=== PATIENT | female | born 1980 | race Caucasian/White ===

== ENCOUNTER 2024-04-30 22:59 | Emergency (ER) | payer OTHER ==
[2024-04-30] MEDS ORDERED: NA CHLORIDE 0.9% 1,000 ML ONE (23:57)
[2024-05-01 00:02] LABS: Absolute Basophils 0.1 K/uL (0-0.5); Absolute Eosinophils 0.2 K/uL (0-0.5); Absolute Lymphocytes (CBC) 1.6 K/uL (0.7-4.9); Absolute Monocytes 0.7 K/uL (0.1-1.3); Absolute Neutrophil 9.5 K/uL (1.8-8.0); Basophils % 0.6 % (0-1.3); Eosinophils % 1.6 % (0-4.4); Hematocrit 42.2 % (36.0-45.0); Hemoglobin 14.2 g/dL (12.0-15.0); Lymphocytes % 13.5 % (15.3-44.8); MCH 32.4 pg (27.0-35.0); MCHC 33.6 g/dL (32.0-36.0); MCV 96.5 fL (80-100); Monocytes % 5.8 % (3.3-12.3); Neutrophils % 78.5 % (41.7-73.7); Platelets 276 thou/uL (152-406); RBC Red Blood Cell Count 4.38 M/uL (3.86-4.86); Red Cell Distribution Width 14.6 % (12.1-15.2)
[2024-05-01 00:10] LABS: Anion Gap 7.2 mEq/L (5.0-15.0); Potassium 4.2 mEq/L (3.5-5.1)
--- NOTE | 2024-05-01 04:04 | RAD REPORT ---
EXAM: CT abdomen and pelvis with IV contrast CLINICAL DATA: 44 years Female post hyst bleeding; Abd pain TECHNICAL DATA: Axial CT imaging of the abdomen and pelvis was performed following the administration of intravenous contrast.. Oral contrast was not administered. Sagittal and coronal reconstructed images were then performed. The CT study is performed according to ALARA (as low as reasonably achievable) or A ISAI/IMAGE GENTLY, with automatic adjustment of mA and/or kV according to patient size. Performed on: 05/01/2024 at 1:55 AM. Comparison: No prior studies were available for comparison. FINDINGS: Lung bases: Lung bases are clear. The heart is normal in size. Liver: The liver is normal in size and configuration. No focal hepatic abnormalities are identified. Liver attenuation is within normal limits. The hepatic and portal veins are patent. Spleen: The spleen is normal in size, configuration and attenuation. Gallbladder and bile duct: The gallbladder is relatively well distended and unremarkable. There is no biliary ductal dilatation. Pancreas: The pancreas is grossly normal in size and configuration. Adrenal Glands: The adrenal glands are normal in size and configuration. Kidneys: The kidneys are normal in size and configuration. There is no evidence of hydronephrosis. Th ere is no evidence of nephrolithiasis. There is a 9 mm benign-appearing right renal cortical cyst. No follow-up imaging is recommended. Stomach: The stomach is grossly normal. There is no definite hiatal hernia. Bowel: The bowel gas pattern is non specific and non obstructive. There is bowel wall thickening invo lving a few small bowel loops in the left hemiabdomen. This finding is nonspecific but may be due to underlying inflammatory bowel disease. Appendix: There is no CT evidence of acute appendicitis. Free air: There is no evidence of free air. Free fluid: There is a small amount of nonspecific low-density fluid in the pelvis. This may be physi ologic in nature. Vasculature: The aorta is normal in caliber and contour. The inferior vena cava is grossly unremarkab le. Lymphadenopathy: No pathologic lymphadenopathy is identified. Bladder: The bladder is well distended and smooth in contour. Reproductive: The uterus is surgically absent. There is a small amount of nonspecific low density pel destini free fluid. Bones: No acute osseous abnormalities are identified. There are remote postsurgical changes of the th oracolumbar spine consistent with extensive posterior decompression and fusion extending from at least T9-L4. The indwelling hardware appears intact without evidence to suggest hardware failure. Add itionally, the indwelling hardware produces streak artifact and slight degradation of image quality. There is increased sclerosis and irregularity involving the posterior right iliac bone which may represent a donor graft site. Soft tissues: No acute soft tissue abnormalities are identified. IMPRESSION: 1. There is bowel wall thickening involving a few small bowel loops in the left hemiabdomen. This f inding is nonspecific but may be due to underlying inflammatory bowel disease. 2. Small amount of nonspecific low density pelvic free fluid. This may be physiologic in nature. 3. Remote posterior decompression and fusion of the thoracolumbar spine extending from at least T9- L4. The indwelling hardware appears intact without evidence to suggest hardware failure. Additionally, the indwelling hardware produces streak artifact and slight degradation of image qualit y. 4. Status post hysterectomy. Electronically signed by: Marylou Ferreira DO 05/01/2024 04:00 AM [facility] Due to temporary technical issues with the PACS/[employer] reporting system, reports are being jamey d by the in-house radiologist without review as a courtesy to ensure prompt reporting the interpreting radiologist is fully responsible for the content of the report. Transcribed Date/Time: 05/01/2024 4:04 AM
[2024-05-01] MEDS ORDERED: MORPHINE 4 MG/ML SYR ONE (04:26)
[2024-05-01] MEDS ORDERED: ONDANSETRON 4 MG/2 ML VIAL ONE (04:26)
--- NOTE | 2024-05-01 04:42 | EDPHYS ---
Physician Documentation [facility] Name: Sandy Londono Age: 44 yrs Sex: Female : 1980 Arrival Date: 04/30/2024 Time: 22:59 Bed 3 Private MD: ED Physician Dewayne Ambriz HPI: 04/30 23:21 This 44 yrs old Female presents to ER via Unassigned with complaints of Vaginal kb Bleeding - Post Sx. 23:21 Pt is a 44 year old female who presents for vaginal bleeding that began during kb intercourse this evening. states she had a hysterectomy one month ago and was cleared for intercourse today. Reports abd cramping. Hysterectomy performed by Dr Olmedo at [facility]. . 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 - Infectious Disease History:: Denies. - Social history:: Smoking status: Patient denies any tobacco usage or history of. Patient uses alcohol, occasionally. street drugs, CBD, THC. ROS: 23:22 Constitutional: As per HPI kb Exam: 05/01 00:37 Constitutional: This is a well developed, well nourished patient who is awake, alert, kb and in no acute distress. Head/Face: Normocephalic, atraumatic. ENT: Moist Mucous membranes Cardiovascular: Regular rate Respiratory: Respirations even and unlabored. No increased work of breathing. Talking in full sentences Skin: Warm, dry with normal turgor. Normal color. MS/ Extremity: Pulses equal, no cyanosis. Neurovascular intact. Full, normal range of motion. Neuro: Awake and alert, GCS 15, oriented to person, place, time, and situation. Abdomen/GI: Inspection: abdomen appears normal, Bowel sounds: normal, Palpation: soft, in all quadrants, mild abdominal tenderness, in the suprapubic area, : Pelvic Exam: External exam: is normal, Speculum exam: mild bleeding, the nurse was present for the exam, Vital Signs: 04/30 23:27 BP 99 / 54; Pulse 73; Resp 17 S; Temp 98.1(O); Pulse Ox 99% on R/A; Weight 63.5 kg (R); lg3 Height 5 ft. 5 in. (R); Pain 8; 05/01 00:30 BP 101 / 56; Pulse 71; Resp 18; Pulse Ox 99% ; cp4 01:49 BP 104 / 54; Pulse 80; Resp 18; Pulse Ox 99% ; cp4 02:56 BP 106 / 62; Pulse 73; Resp 18; Pulse Ox 99% ; cp4 04:53 BP 104 / 64; Pulse 84; Resp 18; Temp 98.1; Pulse Ox 100% ; Pain 3/10; bm8 04/30 23:27 Body Mass Index 23.30 (63.50 kg, 165.1 cm) lg3 04/30 23:27 Pain Scale: Adult lg3 04:53 Pain Scale: Adult bm8 Janes Coma Score: 04:53 Eye Response: spontaneous(4). Motor Response: obeys commands(6). Verbal Response: bm8 oriented(5). Total: 15. MDM: 04/30 23:17 Medical Screening Exam initiated kb 05/01 00:53 Transition of care: After a detail discussion of the patient's case, care is kb transferred to Dewayne Ambriz MD. 04:33 ED course: IMPRESSION: 1. There is bowel wall thickening involving a few small bowel sp4 loops in the left hemiabdomen. This finding is nonspecific but may be due to underlying inflammatory bowel disease. 2. Small amount of nonspecific low density pelvic free fluid. This may be physiologic in nature. 3. Remote posterior decompression and fusion of the thoracolumbar spine extending from at least T9-L4. The indwelling hardware appears intact without evidence to suggest hardware failure. Additionally, the indwelling hardware produces streak artifact and slight degradation of image quality. 4. Status post hysterectomy. Electronically signed by: Marylou Ferreira DO 05/01/2024 04:00 AM. 04:38 Differential diagnosis: cervicitis, dysmenorrhea, endometriosis, ovarian cyst. Data sp4 reviewed: vital signs, nurses notes, lab test result(s), radiologic studies, CT scan. Consideration of Admission/Observation Escalation of care including admission/observation considered. ED course: Patient will be advised pelvic rest for at least 1 week. Follow-up with Dr. Locke with [facility]. 04/30 23:25 Order name: CBC with Diff; Complete Time: 00:10 kb 04/30 23:25 Order name: BMP; Complete Time: 00:10 kb 04/30 23:35 Order name: CT Abd/Pelvis - IV Contrast Only; Complete Time: 04:33 kb 04/30 23:25 Order name: IV Start; Complete Time: 23:55 kb 04/30 23:25 Order name: Pelvic Exam Setup; Complete Time: 00:16 kb Administered Medications: 00:16 Drug: NS 0.9% IV 1000 ml IV at 1000 ml once; to be given as a bolus over 60 minutes cp4 Route: IV; Rate: 1000 ml; Site: right antecubital; 04:54 Follow up: Response: No adverse reaction; IV Status: Completed infusion; IV Intake: bm8 1000ml 04:29 Drug: Ondansetron IVP 4 mg IVP once; over 2 minutes Route: IVP; Site: right antecubital;cp4 04:54 Follow up: Response: No adverse reaction bm8 04:30 Drug: morphine IVP or IV 4 mg IVP once over 4 mins Route: IVP; Infused Over: 4 mins; cp4 Site: right antecubital; 04:54 Follow up: Response: No adverse reaction bm8 Disposition: 04:38 Co-signature as Attending Physician, Dewayne Ambriz MD I agree with the assessment sp4 and plan of care. I reviewed the patient's care provided by Advanced Practice Provider \T\ agree w/ the diagnosis \T\ care plan. I personally saw the pt \T\ performed a substantive portion of the visit, incldng all aspects of the (History/Exam/Medical Decision Making). Disposition Summary: 05/01/24 04:41 Discharge Ordered Notes: Pelvic rest at least one week Location: Home sp4 Problem: new sp4 Symptoms: have improved sp4 Condition: Stable sp4 Diagnosis - Acute vaginal pain sp4 - Acute pelvic pain after [place] sp4 Followup: sp4 - With: Kate Olmedo MD - When: 1 - 2 days - Reason: Recheck today's complaints Discharge Instructions: - Discharge Summary Sheet sp4 - Pelvic Pain, Female, [id number] sp4 Forms: - Patient Portal Instructions sp4 Prescriptions: - acetaminophen-codeine 300-60 mg Oral tablet - take 1 tablet ORAL route every 6 hours PRN pain; 20 tablet; Refills: 0, Product sp4 Selection Permitted Signatures: Dispatcher [employer] Debi Isaacs, Ada Matt RN RN lg3 Dewayne Ambriz MD MD sp4 Breanne Mayes 4 Héctor Metzger RN bm8
--- NOTE | 2024-05-01 04:42 | ER ---
Nurse's Notes [facility] Name: Sandy Londono Age: 44 yrs Sex: Female : 1980 Arrival Date: 04/30/2024 Time: 22:59 Bed 3 Private MD: Diagnosis: Acute vaginal pain;Acute pelvic pain after [place] Presentation: 04/30 23:27 Chief complaint: Patient states: pelvic cramping with vaginal bleeding X1 hr after lg3 intercourse. total hysterectomy performed 03/31. Coronavirus screen: Client denies travel out of the [place] in the last 14 days. At this time, the client does not indicate any symptoms associated with coronavirus-19. Ebola Screen: No symptoms or risks identified at this time. Initial Sepsis Screen: Does the patient meet any 2 criteria? No. Patient's initial sepsis screen is negative. Does the patient have a suspected source of infection? No. Patient's initial sepsis screen is negative. Risk Assessment: Do you want to hurt yourself or someone else? Patient reports no desire to harm self or others. Onset of symptoms was April 30, 2024. 23:27 Method Of Arrival: Wheelchair lg3 23:27 Acuity: EMMA 3 lg3 Triage Assessment: 23:28 General: Appears in no apparent distress. uncomfortable, Behavior is calm, cooperative. lg3 Pain: Complains of pain in pelvis Pain does not radiate. Pain currently is 8 out of 10 on a pain scale. Quality of pain is described as crampy. EENT: No deficits noted. No signs and/or symptoms were reported regarding the EENT system. Neuro: No deficits noted. Ríos Agitation-Sedation Scale (RASS): 0 - Alert and Calm Level of Consciousness is awake, alert, obeys commands, Oriented to person, place, time, situation. Cardiovascular: No deficits noted. Denies chest pain, shortness of breath, Capillary refill < 3 seconds Clubbing of nail beds is absent JVD is absent Patient's skin is warm and dry. Respiratory: No deficits noted. Airway is patent Respiratory effort is even, unlabored, Respiratory pattern is regular, symmetrical. GI: Abdomen is round non-distended, Reports lower abdominal pain, nausea. : Reports vaginal bleeding that is bright red, light flow, spotty. Derm: No deficits noted. No signs and/or symptoms reported regarding the dermatologic system. Skin is intact, is healthy with good turgor, Skin is dry, Skin is normal, Skin temperature is warm. Musculoskeletal: No deficits noted. No signs and/or symptoms reported regarding the musculoskeletal system. Circulation, motion, and sensation intact. Range of motion: intact in all extremities. 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 - Infectious Disease History:: Denies. - Social history:: Smoking status: Patient denies any tobacco usage or history of. Patient uses alcohol, occasionally. street drugs, CBD, THC. Screenin/14 00:20 [facility] ED Fall Risk Assessment (Adult) History of falling in the last 3 months, cp4 including since admission No falls in past 3 months (0 pts) Confusion or Disorientation No (0 pts) Intoxicated or Sedated No (0 pts) Impaired Gait No (0 pts) Mobility Assist Device Used No (0 pt) Altered Elimination No (0 pt) Score/Fall Risk Level 0 - 2 = Low Risk Oriented to surroundings, Maintained a safe environment, Assessed \T\ reinforced patient's understanding of fall precautions, Hourly rounding (assess needs \T\ fall precautionary measures) done. Abuse screen: Denies threats or abuse. Nutritional screening: No deficits noted. Tuberculosis screening: No symptoms or risk factors identified. Assessment: 00:20 General: Appears in no apparent distress. uncomfortable, Behavior is calm, cooperative, cp4 appropriate for age. Pain: Denies pain. Neuro: Level of Consciousness is awake, alert, obeys commands, Oriented to person, place, time, situation. Cardiovascular: Patient's skin is warm and dry. Respiratory: Airway is patent Respiratory effort is even, unlabored. GI: No signs and/or symptoms were reported involving the gastrointestinal system. : Reports vaginal bleeding that is bright red. EENT: No signs and/or symptoms were reported regarding the EENT system. Derm: No signs and/or symptoms reported regarding the dermatologic system. Musculoskeletal: No signs and/or symptoms reported regarding the musculoskeletal system. 01:30 Reassessment: Patient appears in no apparent distress at this time. Patient and/or cp4 family updated on plan of care and expected duration. Pain level reassessed. Patient is alert, oriented x 3, equal unlabored respirations, skin warm/dry/pink. 02:30 Reassessment: Patient appears in no apparent distress at this time. Patient and/or cp4 family updated on plan of care and expected duration. Pain level reassessed. Patient is alert, oriented x 3, equal unlabored respirations, skin warm/dry/pink. 03:10 Reassessment: Patient appears in no apparent distress at this time. Patient and/or cp4 family updated on plan of care and expected duration. Pain level reassessed. Patient is alert, oriented x 3, equal unlabored respirations, skin warm/dry/pink. 04:53 Reassessment: Patient appears in no apparent distress at this time. Patient and/or bm8 family updated on plan of care and expected duration. Pain level reassessed. Patient is alert, oriented x 3, equal unlabored respirations, skin warm/dry/pink. Patient states feeling better. Patient states symptoms have improved. Vital Signs: 04/30 23:27 BP 99 / 54; Pulse 73; Resp 17 S; Temp 98.1(O); Pulse Ox 99% on R/A; Weight 63.5 kg (R); lg3 Height 5 ft. 5 in. (R); Pain 01/25; 05/01 00:30 BP 101 / 56; Pulse 71; Resp 18; Pulse Ox 99% ; cp4 01:49 BP 104 / 54; Pulse 80; Resp 18; Pulse Ox 99% ; cp4 02:56 BP 106 / 62; Pulse 73; Resp 18; Pulse Ox 99% ; cp4 04:53 BP 104 / 64; Pulse 84; Resp 18; Temp 98.1; Pulse Ox 100% ; Pain 3/10; bm8 04/30 23:27 Body Mass Index 23.30 (63.50 kg, 165.1 cm) lg3 04/30 23:27 Pain Scale: Adult lg3 04:53 Pain Scale: Adult bm8 Janes Coma Score: 04:53 Eye Response: spontaneous(4). Motor Response: obeys commands(6). Verbal Response: bm8 oriented(5). Total: 15. ED Course: 04/30 23:01 Patient arrived in ED. ra3 23:16 Debi Collier FNP-C is [facility]. kb 23:16 Dewayne Ambriz MD is Attending Physician. kb 23:28 Triage completed. lg3 23:28 Arm band placed on right wrist. lg3 23:55 BMP Sent. vk 23:55 CBC with Diff Sent. vk 23:55 Inserted saline lock: 22 gauge in right antecubital area, using aseptic technique. vk Blood collected. Flushed with 10 mL NS. 23:55 Initial lab(s) drawn, by me, sent to lab. vk 23:56 BMP Sent. vk 23:56 CBC with Diff Sent. vk 05/01 00:13 Breanne Mayes is Primary Nurse. cp4 00:20 Bed in low position. Call light in reach. Side rails up X 1. cp4 00:29 Assist provider with pelvic exam: Set up pelvic tray. Performed by Debi VELÁZQUEZ Patient tolerated well. 01:51 CT Abd/Pelvis - IV Contrast Only In Process Unspecified. EDMS 04:41 Kate Olmedo MD is Referral Physician. sp4 04:53 Provided Education on: post er care. bm8 04:53 IV discontinued, intact, bleeding controlled, No redness/swelling at site. Pressure bm8 dressing applied. Administered Medications: 00:16 Drug: NS 0.9% IV 1000 ml IV at 1000 ml once; to be given as a bolus over 60 minutes cp4 Route: IV; Rate: 1000 ml; Site: right antecubital; 04:54 Follow up: Response: No adverse reaction; IV Status: Completed infusion; IV Intake: bm8 1000ml 04:29 Drug: Ondansetron IVP 4 mg IVP once; over 2 minutes Route: IVP; Site: right antecubital;cp4 04:54 Follow up: Response: No adverse reaction bm8 04:30 Drug: morphine IVP or IV 4 mg IVP once over 4 mins Route: IVP; Infused Over: 4 mins; cp4 Site: right antecubital; 04:54 Follow up: Response: No adverse reaction bm8 Medication: 00:20 VIS not applicable for this client. cp4 Intake: 04:54 IV: 1000ml; Total: 1000ml. bm8 Outcome: 04:41 Discharge ordered by . sp4 04:53 Discharged to home ambulatory, bm8 04:53 Condition: stable 04:53 Discharge instructions given to patient, family, Instructed on discharge instructions, follow up and referral plans. no drinking with medication, no driving heavy equipment, medication usage, safety practices, Demonstrated understanding of instructions, follow-up care, medications, Prescriptions given X 1, 04:55 Patient left the ED. bm8 Signatures: Dispatcher [employer] EDMS Debi Collier, EXECUTIVE ADMINISTRATOR-C EXECUTIVE ADMINISTRATOR-Ada Gottlibe RN RN lg3 Dewayne Ambriz MD MD sp4 Breanne Mayes 4 Ileana Haider 3 Roshni Gupta Brad, RN RN bm8
[2024-05-01 05:20] VITALS: TEMP 98.1
[2024-05-01 05:26] VITALS: BP 104/64; O2SAT 100
== END 2024-05-01 04:55 | disposition home or self-care (01) ==
LOC: ER 22:59
DX: R10.2 Pelvic and perineal pain (principal); Z90.710 Acquired absence of both cervix and uterus
CPT/HCPCS: 36415; 74177; 80048; 85025; J2405; J7030; Q9967